=== PATIENT | male | born 1995 | race Caucasian/White ===

== ENCOUNTER 2017-11-30 18:02 | Emergency (ER) | payer OTHER ==
[~2017-11-30] VITALS: Ht 185.4 cm; Wt 71.2 kg
[2017-11-30 18:57] LABS: BASO % 0 % (0-3); EOS % 0 % (0-3); HEMATOCRIT 41.6 % (39.0-53.0); HEMOGLOBIN 14.9 g/dL (13.0-17.5); LYMPH # 2.2 x10^3/uL (1.0-4.8); LYMPH % 22 % (24-48); MEAN CORPUSCULAR HEMOGLOBIN 30 pg (25-35); MEAN CORPUSCULAR HGB CONC 36 g/dL (31-37); MEAN CORPUSCULAR VOLUME 85 fL (79-100); MONO # 0.7 x10^3/uL (0.0-1.1); MONO % 7 % (0-9); NEUT # 7.1 x10^3uL (1.8-7.7); NEUT % 71 % (31-73); PLATELET COUNT 243 x10^3/uL (140-400); RED BLOOD COUNT 4.91 x10^6/uL (4.30-5.70); RED CELL DISTRIBUTION WIDTH 13.1 % (11.5-14.5)
[2017-11-30] MEDS ORDERED: LORazepam 1 MG TABLET PO ONE (19:00)
--- NOTE | 2017-11-30 19:06 | ED.ADGEN ---
Past History Past Medical History: Asthma, GERD Past Surgical History: No Surgical History Alcohol Use: Occasionally Drug Use: None Adult General Chief Complaint Chief Complaint Multiple medical complaints HPI HPI Patient is a 22-year-old male who presents with cough, sore throat, chills, shortness of breath, and tingling of hands and both extremities. Symptoms began yesterday. No fever, headache, palpitations, chest pain, rash. No nausea or vomiting. Reports abdominal pain and chronic constipation which is not reviewed. History of seasonal allergies. No other acute symptoms or complaints.[ ] Review of Systems Review of Systems Review symptoms as per history of present illness. All other review symptoms are negative. All other systems were reviewed and found to be within normal limits, except as documented in this note. Current Medications Current Medications Current Medications Medications (Trade) Dose Ordered Sig/Laquita Start Time Stop Time Status Last Admin Dose Admin Lorazepam (Ativan) 1 mg 1X ONCE 11/30/17 19:00 11/30/17 19:01 DC 11/30/17 18:48 1 MG Potassium Bicarbonate (Klyte/Cl) 50 meq 1X ONCE 11/30/17 19:45 11/30/17 19:46 DC 11/30/17 19:31 50 MEQ Allergies Allergies Allergies Coded Allergies Type Severity Reaction Last Updated Verified No Known Drug Allergies 11/30/17 No Physical Exam Physical Exam Constitutional: Well developed, anxious, carpal spasm[] HENT: Normocephalic, atraumatic, bilateral external ears normal, oropharynx moist, nose normal. [] Eyes: PERRLA, EOMI, conjunctiva normal. [] Neck: Normal range of motion, no tenderness. [] Cardiovascular:Heart rate regular rhythm, no murmur [] Lungs & Thorax: Bilateral breath sounds clear to auscultation [] Abdomen: Bowel sounds normal, soft, no tenderness. [] Skin: Warm, dry, no erythema, no rash. [] Back: No tenderness. [] Extremities: No tenderness, no cyanosis, no clubbing, ROM intact, no edema. [] Neurologic: Alert and oriented X 3, normal motor function, normal sensory function, no focal deficits noted. [] Psychologic: Affect normal, judgement normal, mood normal. [] Current Patient Data Vital Signs Vital Signs Date Time Temp Pulse Resp B/P (MAP) Pulse Ox O2 Delivery O2 Flow Rate FiO2 11/30/17 20:48 91 18 128/73 (91) 98 Room Air 11/30/17 18:02 98.2 Lab Results Laboratory Tests Test 11/30/17 18:43 White Blood Count 10.0 x10^3/uL (4.0-11.0) Red Blood Count 4.91 x10^6/uL (4.30-5.70) Hemoglobin 14.9 g/dL (13.0-17.5) Hematocrit 41.6 % (39.0-53.0) Mean Corpuscular Volume 85 fL (79-100) Mean Corpuscular Hemoglobin 30 pg (25-35) Mean Corpuscular Hemoglobin Concent 36 g/dL (31-37) Red Cell Distribution Width 13.1 % (11.5-14.5) Platelet Count 243 x10^3/uL (140-400) Neutrophils (%) (Auto) 71 % (31-73) Lymphocytes (%) (Auto) 22 % (24-48) L Monocytes (%) (Auto) 7 % (0-9) Eosinophils (%) (Auto) 0 % (0-3) Basophils (%) (Auto) 0 % (0-3) Neutrophils # (Auto) 7.1 x10^3uL (1.8-7.7) Lymphocytes # (Auto) 2.2 x10^3/uL (1.0-4.8) Monocytes # (Auto) 0.7 x10^3/uL (0.0-1.1) Eosinophils # (Auto) 0.0 x10^3/uL (0.0-0.7) Basophils # (Auto) 0.0 x10^3/uL (0.0-0.2) D-Dimer (Sandi) < 0.19 mg/L (0.00-0.50) Sodium Level 138 mmol/L (136-145) Potassium Level 2.8 mmol/L (3.5-5.1) *L Chloride Level 102 mmol/L (98-107) Carbon Dioxide Level 24 mmol/L (21-32) Anion Gap 12 (6-14) Blood Urea Nitrogen 14 mg/dL (8-26) Creatinine 1.2 mg/dL (0.7-1.3) Estimated GFR (Cockcroft-Gault) 75.7 BUN/Creatinine Ratio 12 (6-20) Glucose Level 93 mg/dL (70-99) Calcium Level 9.4 mg/dL (8.5-10.1) Total Bilirubin 0.6 mg/dL (0.2-1.0) Aspartate Amino Transferase (AST) 12 U/L (15-37) L Alanine Aminotransferase (ALT) 19 U/L (16-63) Alkaline Phosphatase 73 U/L (46-116) Total Protein 7.3 g/dL (6.4-8.2) Albumin 4.6 g/dL (3.4-5.0) Albumin/Globulin Ratio 1.7 (1.0-1.7) EKG EKG [EKG: Reviewed] Radiology/Procedures Radiology/Procedures Chest XR: No acute disease on preliminary ED review.[] Course & Med Decision Making Course & Med Decision Making Pertinent Labs and Imaging studies reviewed. (See chart for details) [Patient low potassium likely related . Albuterol prior to ED arrival. Patient clinically anxious. Symptoms medical improved with Ativan. Lab work otherwise unremarkable. Symptoms consistent with seasonal allergies with secondary anxiety attack.] Final Impression Final Impression [1 seasonal allergies 2. Anxiety state 3 hypokalemia] Dragon Disclaimer Dragon Disclaimer This electronic medical record was generated, in whole or in part, using a voice recognition dictation system. GARRY DE ANDA DO Nov 30, 2017 19:06
[2017-11-30 19:11] LABS: ALBUMIN 4.6 g/dL (3.4-5.0); ALBUMIN/GLOBULIN RATIO 1.7 (1.0-1.7); CALCIUM 9.4 mg/dL (8.5-10.1); CREATININE 1.2 mg/dL (0.7-1.3); GFR 75.7; TOTAL BILIRUBIN 0.6 mg/dL (0.2-1.0); TOTAL PROTEIN 7.3 g/dL (6.4-8.2)
[2017-11-30 19:13] LABS: POTASSIUM 2.8 mmol/L (3.5-5.1)
--- NOTE | 2017-11-30 19:28 | EKG ---
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
[2017-11-30] MEDS ORDERED: POTASSIUM BICARB 25 MEQ EFFERVESCENT TAB. PO ONE (19:45)
[2017-11-30] MEDS ORDERED: LORA-254 PO (20:20)
[2017-11-30 20:48] VITALS: BP 128/73
--- NOTE | 2017-11-30 23:48 | RAD ---
PA and lateral chest radiographs 11/30/2017 CLINICAL HISTORY: Shortness of breath and chills. Two PA and a lateral digital radiographs of the chest were obtained. No previous studies are available for comparison. The cardiac and mediastinal silhouettes are within normal limits in size and configuration. No acute pulmonary infiltrate is seen. No pleural effusion or pneumothorax is noted. IMPRESSION: No radiographic evidence of active cardiopulmonary disease. Electronically signed by: Shiva Dexter MD (11/30/2017 11:45 PM) [facility]
== END 2017-11-30 20:47 | disposition home or self-care (01) ==
LOC: ER 18:02
DX: J30.2 Other seasonal allergic rhinitis (principal); F41.9 Anxiety disorder, unspecified; E87.6 Hypokalemia; J45.909 Unspecified asthma, uncomplicated; K21.9 Gastro-esophageal reflux disease without esophagitis
CPT/HCPCS: 36415; 71046; 80053; 85025; 85379; 93005; 99285-25

== ENCOUNTER 2017-12-02 11:26 | Emergency (ER) | payer OTHER ==
[~2017-12-02] VITALS: Ht 185.4 cm; Wt 71.2 kg
[~2017-12-02 11:26] MED LIST: LORA-254 PO
[2017-12-02] MEDS: IV NORMAL SALINE 1,000ML 1,000 ML IV ONE (12:13)
--- NOTE | 2017-12-02 12:26 | RAD ---
EXAM: Chest, single view. HISTORY: Chest pain. COMPARISON: 10/30/2017 FINDINGS: A frontal view of the chest is obtained. There is no infiltrate, pleural effusion or pneumothorax. The heart is normal in size. IMPRESSION: No acute pulmonary finding. Electronically signed by: Xiomara Macias MD (12/02/2017 12:22 PM) [place] [id number]
--- NOTE | 2017-12-02 12:31 | PHYS DOC ---
Past History Past Medical History: Asthma, GERD Past Surgical History: No Surgical History Alcohol Use: Occasionally Drug Use: None Adult General Chief Complaint Chief Complaint: MULTIPLE COMPLAINTS HPI HPI 22-year-old male presents to emergency room as referral from Dr. Rubi due to chest pain and a change in his EKG. The patient describes the chest pain to me as a central pressure sensation that lasts from a few minutes up to half an hour. The pain is intermittent and does not seem to be brought on by exertion. Today, he was sitting in class when he had this pain. He denies shortness of breath or diaphoresis It is resolved at this time. The patient tells me his had a lot of difficulty sleeping lately he believes this is due to feeling mild shortness of breath when he lays down. He tells me that when he is trying to go to sleep and feels like he is unable to take a complete breath sometimes. This has some very worried and makes him anxious which makes it even harder to go to sleep. The patient admits to being "exhausted" at this point. He has had a history of anxiety in the past though never enough to be been medicated. He has been under a lot of stress with school. The patient also has a history of asthma. He has not been using his albuterol last few days because they were concerned that he had a low potassium due to albuterol use. He tells me he was using it about 3 times a day prior to this. The patient is now taking Singulair but just started 3 or 4 days ago. He denies fever, chills, nausea, vomiting, diarrhea, constipation. Review of Systems Review of Systems Constitutional: Denies fever or chills [] Eyes: Denies change in visual acuity, redness, or eye pain [] HENT: Denies nasal congestion or sore throat [] Respiratory: shortness of breath at night[] Cardiovascular: No additional information not addressed in HPI [] GI: Denies abdominal pain, nausea, vomiting, bloody stools or diarrhea [] : Denies dysuria or hematuria [] Musculoskeletal: Denies back pain or joint pain [] Integument: Denies rash or skin lesions [] Neurologic: Denies headache, focal weakness or sensory changes [] Endocrine: Denies polyuria or polydipsia [] All other systems were reviewed and found to be within normal limits, except as documented in this note. Current Medications Current Medications Current Medications Medications (Trade) Dose Ordered Sig/Laquita Start Time Stop Time Status Last Admin Dose Admin Sodium Chloride 1,000 ml @ 1,000 mls/hr 1X ONCE 12/02/17 12:00 12/02/17 12:59 12/02/17 12:13 1,000 MLS/HR Allergies Allergies Allergies Coded Allergies Type Severity Reaction Last Updated Verified No Known Drug Allergies 11/30/17 No Physical Exam Physical Exam Constitutional: Well developed, well nourished, no acute distress, non-toxic appearance. Appears tired. [] HENT: Normocephalic, atraumatic, bilateral external ears normal, oropharynx moist, no oral exudates, nose normal. [] Eyes: PERRLA, EOMI, conjunctiva normal, no discharge. [] Neck: Normal range of motion, no tenderness, supple, no stridor. [] Cardiovascular:Heart rate regular rhythm, no murmur [] Lungs & Thorax: Bilateral breath sounds clear to auscultation [] Abdomen: Bowel sounds normal, soft, no tenderness, no masses, no pulsatile masses. [] Skin: Warm, dry, no erythema, no rash. [] Back: No tenderness, no CVA tenderness. [] Extremities: No tenderness, no cyanosis, no clubbing, ROM intact, no edema. [] Neurologic: Alert and oriented X 3, normal motor function, normal sensory function, no focal deficits noted. [] Psychologic: Affect normal, judgement normal, mood normal. [] Current Patient Data Vital Signs Vital Signs Date Time Temp Pulse Resp B/P (MAP) Pulse Ox O2 Delivery O2 Flow Rate FiO2 12/02/17 11:39 98.3 77 18 98 Room Air EKG EKG Sinus rhythm, rate 80, normal axis, no ST elevation or depressions. More prominent T waves in V4 through V6 since EKG 11/30/2017[] Radiology/Procedures Radiology/Procedures [] Impressions: EXAM: Chest, single view. HISTORY: Chest pain. COMPARISON: 10/30/2017 FINDINGS: A frontal view of the chest is obtained. There is no infiltrate, pleural effusion or pneumothorax. The heart is normal in size. IMPRESSION: No acute pulmonary finding. Electronically signed by: Xiomara Berry MD (12/02/2017 12:22 PM) [facility] DICTATED AND SIGNED BY: XIOMARA BERRY MD DATE: 12/02/17 1222 CC: GARRY ORNELAS DO; DEONNA RUBI MD ~ Course & Med Decision Making Course & Med Decision Making Pertinent Labs and Imaging studies reviewed. (See chart for details) The patient's labs are unremarkable. His troponin is negative. His chest x-ray is negative. His EKG is unremarkable. Urinalysis is unremarkable. UDS is unremarkable. With 2 recent unremarkable workups, seems more likely that the patient's symptoms stem from anxiety. I have advised him to continue his Zoloft. Also advised him that he could take his albuterol before bed and that this was unlikely to have significant impact on his potassium. His potassium here is normal. He is stable for discharge at this time. I will prescribe him hydroxyzine 25 mg as an anti-anxiety medication and to help him sleep. If this works well he can continue with that with his PCP. [] Dragon Disclaimer Dragon Disclaimer This electronic medical record was generated, in whole or in part, using a voice recognition dictation system. Departure Departure: Referrals: DEONNA RUBI MD (PCP) GARRY ORNELAS DO Dec 02, 2017 12:31
[2017-12-02 12:37] LABS: BASO % 0 % (0-3); EOS % 0 % (0-3); HEMOGLOBIN 15.7 g/dL (13.0-17.5); LYMPH # 1.5 x10^3/uL (1.0-4.8); LYMPH % 17 % (24-48); MEAN CORPUSCULAR HEMOGLOBIN 30 pg (25-35); MEAN CORPUSCULAR HGB CONC 36 g/dL (31-37); MEAN CORPUSCULAR VOLUME 85 fL (79-100); MONO # 0.8 x10^3/uL (0.0-1.1); MONO % 9 % (0-9); NEUT # 6.8 x10^3uL (1.8-7.7); NEUT % 75 % (31-73); PLATELET COUNT 250 x10^3/uL (140-400); RED CELL DISTRIBUTION WIDTH 13.1 % (11.5-14.5); WHITE BLOOD COUNT 9.1 x10^3/uL (4.0-11.0)
[2017-12-02 12:42] LABS: ALBUMIN 4.8 g/dL (3.4-5.0); ALBUMIN/GLOBULIN RATIO 1.6 (1.0-1.7); CALCIUM 10.3 mg/dL (8.5-10.1); CREATININE 1.1 mg/dL (0.7-1.3); GFR 83.7; TOTAL PROTEIN 7.8 g/dL (6.4-8.2)
[2017-12-02 12:49] VITALS: BP 126/81
[2017-12-02 13:02] LABS: BACTERIA,URINE 0 /HPF (0-FEW); BILIRUBIN,URINE NEG (NEG); CLARITY,URINE CLEAR; COLOR,URINE YELLOW; GLUCOSE,URINE NEG (NEG); NITRITE,URINE NEG (NEG); RBC,URINE 0 /HPF (0-2); SQUAMOUS EPITHELIAL CELL,UR OCC /LPF; UROBILINOGEN,URINE 0.2 mg/dL (0.2 mg/dL); WBC,URINE 0 /HPF (0-4)
[2017-12-02 13:09] LABS: AMPHETAMINE/METHAMPHETAMINE NEG (NEG); BARBITURATES NEG (NEG); BENZODIAZEPINES NEG (NEG); CANNABINOIDS NEG (NEG); COCAINE NEG (NEG); METHADONE NEG (NEG); OPIATES NEG (NEG); PHENCYCLIDINE NEG (NEG)
[2017-12-02] MEDS ORDERED: HYDR25TA PO ×2 (13:31→13:35)
--- NOTE | 2017-12-02 13:48 | EKG ---
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
== END 2017-12-02 13:42 | disposition home or self-care (01) ==
LOC: ER 11:26
DX: R07.89 Other chest pain (principal); R06.02 Shortness of breath; J45.909 Unspecified asthma, uncomplicated; K21.9 Gastro-esophageal reflux disease without esophagitis
CPT/HCPCS: 36415; 71045; 80053; 80307; 81001; 84484; 85025; 93005; 99285-25; G0479; J7030

== ENCOUNTER → 2018-07-02 | Outpatient (CLI) | payer OTHER ==
[~2018-07-02] MED LIST changes: +HYDR25TA PO
--- NOTE | 2018-07-02 11:09 | RAD ---
Right upper quadrant abdominal ultrasound, 07/02/2018: HISTORY: Epigastric pain, nausea The gallbladder is within normal limits in size. There is no sonographic evidence of cholelithiasis. The gallbladder keyes are not thickened. The common hepatic duct is of normal caliber. The visualized portions of the liver, pancreas and right kidney are unremarkable. IMPRESSION: No significant abnormality is detected. Electronically signed by: Baltazar Garza MD (07/02/2018 11:06 AM) [facility]
== END | disposition home or self-care (01) ==
LOC: US 07:28
PROVIDERS: ATTEND Internal Medicine Gastroenterology
DX: R10.13 Epigastric pain (principal); R11.0 Nausea
CPT/HCPCS: 76705